=== PATIENT | male | born 1965 | race Caucasian/White ===

== ENCOUNTER → 2021-07-25 | Outpatient (CLI) | payer BC ==
[~2021-07-25] MED LIST: CATHETER FLUSH 10 ML SYR IV PRN
[2021-07-25 13:04] VITALS: BP 145/96
[2021-07-25 13:19] VITALS: BP 203/107
[2021-07-25 13:25] VITALS: BP 156/103
--- NOTE | 2021-07-25 15:15 | Cardiology Stress Test Report ---
Stress Test Report Date of Procedure/Referring: Date of Procedure: Jul 25, 2021 PCP Gabriel Fofana MD Admitting Physician Indications: HTN Baseline Heart Rate: 71 Baseline Blood Pressure: Blood Pressure Systolic: 156 Blood Pressure Diastolic: 103 Vital Signs Date Time Temp Pulse Resp B/P (MAP) Pulse Ox O2 Delivery O2 Flow Rate FiO2 07/25/21 13:04 70 17 145/96 (112) 07/25/21 13:19 98 Room Air Baseline Vital Signs Vital Signs Date Time Temp Pulse Resp B/P (MAP) Pulse Ox O2 Delivery O2 Flow Rate FiO2 07/25/21 13:04 70 17 145/96 (112) 07/25/21 13:19 98 Room Air Baseline EKG: Baseline EKG: NSR Summary: After explaining the procedure and details to the patient, he signed the consent and was brought to the stress nuclear laboratory. Patient exercised on standard Ronnie protocol, EKG, heart rate and blood pressure were monitored continuously, resting and stress doses of radio tracer were injected, imaging was acquired and reviewed in the short axis, horizontal long axis and vertical long axis views Patient was able to exercise for a total of 7 minutes on Ronnie protocol, METs 8.3 Maximum heart rate 150 Maximum blood pressure 203/107 Stress EKG, Minimal nondiagnostic changes Recovery EKG, Return to baseline TID: 1.09 SSS: 5 SDS: 3 EF: 51 Conclusion: 1. Fair exercise tolerance for a total of 7 minutes on standard Ronnie protocol, total of 8.3 METS achieving 92% of maximal expected heart rate 2. Severe hypertensive response to exercise with peak blood pressure 203/107 return to baseline during recovery 3. Nondiagnostic EKG changes with exercise return to baseline during recovery 4. Diaphragmatic attenuation with reversible ischemia involving the mid to apical inferolateral and anterolateral zuniga 5. Normal left ventricular size, ejection fraction 51% GABRIEL FOFANA MD Jul 25, 2021 15:15
== END ==
LOC: CARD 11:00
PROVIDERS: ATTEND Internal Medicine Cardiovascular Disease
DX: I10 Essential (primary) hypertension (principal); I25.10 Atherosclerotic heart disease of native coronary artery without angina pectoris
CPT/HCPCS: 78452; 93017; 93306; A9502